=== PATIENT | male | born 1970 | race Caucasian/White ===

== ENCOUNTER 2017-11-02 22:49 | Emergency (ER) | payer OTHER ==
[~2017-11-02] VITALS: Ht 177.8 cm; Wt 104.8 kg
[2017-11-03] MEDS ORDERED: PULMICORT FLEX90 MCG IH (08:47)
[2017-11-03] MEDS ORDERED: VENTOLIN HFA18 GM IH (08:47)
== END 2017-11-03 10:23 | disposition home or self-care (01) ==
LOC: ER 22:49
DX: J45.998 Other asthma (principal)